=== PATIENT | male | born 1965 | race Two or more races ===

== ENCOUNTER 2020-06-24 14:37 | Inpatient (IN) | payer MEDICAID ==
[~2020-06-24] VITALS: Ht 172.7 cm; Wt 90.7 kg
[~2020-06-24 14:37] MED LIST: LEVO100I IV; LOSA25TA38 PO; SIMV-8 PO
[2020-06-24 14:53] VITALS: BP 152/84
[2020-06-24 19:27] LABS: Basophils # (auto) 0.1 10 ^3/uL (0-0.2); Basophils % (auto) 0.9 % (0.0-2.0); Eosinophils # (auto) 0.6 10 ^3/uL (0-0.8); Eosinophils % (auto) 5.3 % (0.0-7.0); Hematocrit 42.1 % (41.0-53.0); Hemoglobin 14.4 g/dL (13.5-17.5); Lymphocytes # (auto) 4.9 10 ^3/uL (0.4-5.4); Mean Corpuscular Hemoglobin 31.6 pg (28.0-32.0); Mean Corpuscular Hgb Conc. 34.2 g/dL (32.0-36.0); Mean Corpuscular Volume 92.3 fL (80.0-100.0); Monocytes # (auto) 0.9 10 ^3/uL (0-1.3); Monocytes % (auto) 8.5 % (0.0-12.0); Neutrophils # (auto) 4.4 10 ^3/uL (1.6-8.6); Neutrophils % (auto) 40.3 % (37.0-80.0); Red Blood Cells 4.57 10^6/uL (4.5-5.90); Red Cell Distribution Width 14.3 % (11.8-14.3); White Blood Cell 10.8 10^3/uL (4.4-10.8)
[2020-06-24] MEDS ORDERED: NITROGLYCERIN 0.4 MG SL TAB SL PRN (19:30)
[2020-06-24] MEDS ORDERED: MORPHINE SULFATE INJECTION 2 MG/ML SYRG IV PRN (19:30)
[2020-06-24 19:47] LABS: Magnesium 2.4 mg/dL (1.6-2.6)
[2020-06-24 19:51] LABS: Calcium 9.1 mg/dL (8.5-10.1); Chloride 102 mmol/L (98-107); Potassium 3.9 mmol/L (3.5-5.1); Sodium 136 mmol/L (136-145)
[2020-06-24 20:11] LABS: Alanine Aminotransferase 101 U/L (16-61); Albumin 3.9 g/dL (3.4-5.0); Alkaline Phosphatase 80 U/L (45-117); Anion Gap 4 (5-15); Aspartate Aminotransferase 71 U/L (15-37); BUN/Creatinine Ratio 7.7; Bilirubin, Total 0.7 mg/dL (0.2-1.0); Blood Urea Nitrogen 7 mg/dL (7-18); Carbon Dioxide 30 mmol/L (21-32); GFR African American 111 mL/min; GFR Non-African American 92 mL/min; Glucose 90 mg/dL (74-106); Total Protein 8.9 g/dL (6.4-8.2)
[2020-06-24 21:28] LABS: Cholesterol 197 mg/dL (< 200); HDL Cholesterol 41 mg/dL (40-59); LDL Cholesterol 135 mg/dL (< 100); Triglycerides 97 mg/dL (< 150)
[2020-06-25] MEDS ORDERED: ATORVASTATIN 20 MG TAB PO SCH (10:00)
[2020-06-25] MEDS ORDERED: LOSARTAN POTASSIUM 25 MG TAB PO SCH (10:00)
[2020-06-25] MEDS ORDERED: ASPirin-EC 81 mg tab PO SCH (10:00)
== END 2020-06-24 20:25 | disposition left against medical advice (07) | DRG 52 ==
LOC: ER 14:37 → OVERFLOW 19:35
PROVIDERS: ADMIT Nurse Practitioner Acute Care; ATTEND Nurse Practitioner Acute Care
DX: G93.40 Encephalopathy, unspecified (principal); E03.9 Hypothyroidism, unspecified; E66.9 Obesity, unspecified; E78.5 Hyperlipidemia, unspecified; I10 Essential (primary) hypertension; I67.2 Cerebral atherosclerosis; Z79.899 Other long term (current) drug therapy; Z86.73 Personal history of transient ischemic attack (TIA), and cerebral infarction without residual deficits; Z91.14 Patient's other noncompliance with medication regimen
CPT/HCPCS: 36415; 70450; 80053; 80061; 80320; 83605; 83735; 84443; 84484; 85025; 93005; G0378